=== PATIENT | female | born 1965 | race Caucasian/White ===

== ENCOUNTER → 2017-07-19 13:58 | Outpatient (CLI) | payer BC, OTHER ==
[2017-07-20 10:22] LABS: IMMUNOGLOBULIN A 111 mg/dL (87-352)
[2017-07-21 06:16] LABS: IGG SUBCLASS 1 430 mg/dL (248-810); IGG SUBCLASS 2 275 mg/dL (130-555); IGG SUBCLASS 3 53 mg/dL (15-102); IGG SUBCLASS 4 12 mg/dL (2-96)
[2017-07-24 09:09] LABS: IMMUNOGLOBULIN E 4 IU/mL (0-100)
== END | disposition home or self-care (01) ==
LOC: D.RT 13:58
PROVIDERS: Internal Medicine Pulmonary Disease
DX: J45.991 Cough variant asthma (principal); Z87.09 Personal history of other diseases of the respiratory system